=== PATIENT | female | born 1975 | race Asian ===

== ENCOUNTER 2019-01-09 23:04 | Inpatient (IN) | payer MEDICAID ==
[~2019-01-09] VITALS: Ht 172.7 cm; Wt 64.9 kg
[~2019-01-09 23:04] MED LIST: ASEN10TA8 SL; MIRT15 PO
[2019-01-10 00:01] VITALS: BP 122/82
[2019-01-10] MEDS: HALOPERIDOL 5 MG TABLET PO PRN ×2 (01:12→05:43)
[2019-01-10] MEDS: LORazepam 2 MG TABLET PO PRN ×3 (01:12→17:10)
[2019-01-10] MEDS: ZOLPIDEM TARTRATE 10 MG TABLET PO PRN (02:16)
[2019-01-10] MEDS ORDERED: ALBUTEROL SULFATE HFA 90 MCG/PUFF 8 GM INHALER IH PRN (07:45)
[2019-01-10] MEDS ORDERED: BACITRACIN 28.4 GM OINTMENT TP PRN (07:45)
[2019-01-10] MEDS ORDERED: IBUPROFEN 600 MG TABLET PO PRN (07:45)
[2019-01-10] MEDS ORDERED: ONDANSETRON HCL 4 MG TABLET PO PRN (07:45)
[2019-01-10] MEDS ORDERED: LOPERAMIDE HCL 2 MG CAPSULE PO PRN (07:45)
[2019-01-10] MEDS ORDERED: ACETAMINOPHEN 325 MG TABLET PO PRN (07:45)
[2019-01-10] MEDS ORDERED: MAG HYDROX/AL HYDROX/SIMETH ES 30 ML SUSPENSION UDCUP PO PRN (07:45)
[2019-01-10] MEDS ORDERED: BENZOCAINE/MENTHOL LOZENGE MM PRN (07:45)
[2019-01-10] MEDS ORDERED: CloNIDine HCL 0.1 MG TABLET PO PRN (07:45)
[2019-01-10] MEDS ORDERED: PETROLATUM,WHITE 28 GM JELLY TP PRN (07:45)
[2019-01-10] MEDS ORDERED: MAGNESIUM HYDROXIDE SUSPENSION 30 ML UDCUP PO PRN (07:45)
[2019-01-10 07:47] LABS: BASOPHILS % (AUTO) 0.4 % (0.0-2.0); HEMATOCRIT 43.3 % (36-46); HEMOGLOBIN 14.4 g/dL (12.0-16.0); LYMPHOCYTES # (AUTO) 1.3 K/uL (1.0-4.8); LYMPHOCYTES % (AUTO) 37.2 % (22.0-44.0); MEAN CORPUSCULAR HEMOGLOBIN 29.7 pg (26.0-34.0); MEAN CORPUSCULAR HGB CONC 33.3 G/dL (31.0-37.0); MEAN CORPUSCULAR VOLUME 89 fL (80-100); MONOCYTES # (AUTO) 0.5 K/uL (0.1-1.0); NEUTROPHILS # (AUTO) 1.7 K/uL (1.8-7.7); NEUTROPHILS % (AUTO) 47.4 % (40.0-70.0); PLATELET COUNT (AUTO) 289 K/uL (150-450); RED BLOOD CELL COUNT(AUTO) 4.86 MIL/uL (4.00-5.20); RED CELL DISTRIBUTION WIDTH 13.3 % (11.5-14.5)
[2019-01-10 08:04] LABS: HEMOGLOBIN A1C 5.5 % (4.5-6.2)
[2019-01-10 08:19] LABS: ALANINE AMINOTRANSFERASE 15 U/L (12-78); ALBUMIN 3.6 g/dL (3.4-5.0); ALKALINE PHOSPHATASE 78 U/L (46-116); ANION GAP 7 mmol/L (8-16); ASPARTATE AMINOTRANSFERASE 17 U/L (15-37); BILIRUBIN,TOTAL 0.4 mg/dL (0.1-1.0); CALCIUM, TOTAL 9.7 mg/dL (8.8-10.5); CARBON DIOXIDE 27 mmol/L (22-29); CHLORIDE 104 mmol/L (98-107); CHOL/HDL RATIO 4.7 (3.9-5.7); CHOLESTEROL 140 mg/dL (131-200); CREATININE 0.72 mg/dL (0.60-1.30); FREE T4 (FREE THYROXINE) 1.32 ng/dL (0.76-1.46); GLOMERULAR FILTR. RATE CALC > 60 mL/min (>60); GLUCOSE,RANDOM 88 mg/dL (70-110); HCG,QUANTITATIVE < 1 mIU/mL (0-6); HDL CHOLESTEROL 30 mg/dL (40-60); LDL CHOL (CALC.) 99 mg/dL (0-130); POTASSIUM 3.8 mmol/L (3.5-5.1); SODIUM SERUM 138 mmol/L (136-145); THYROID STIMULATING HORMONE 2.67 uIU/mL (0.36-3.74); TOTAL PROTEIN, SERUM 8.1 g/dL (6.4-8.2); TRIGLYCERIDES 56 mg/dL (15-150); UREA NITROGEN, BLOOD 14 mg/dL (7-18)
[2019-01-10 08:30] VITALS: BP 120/76
[2019-01-10] MEDS: OMEPRAZOLE 20 MG CAPSULE PO SCH ×2 (09:00→10:23)
[2019-01-10] MEDS: DOCUSATE SODIUM 100 MG CAPSULE PO SCH ×2 (09:00→10:25)
[2019-01-10 16:07] VITALS: BP 106/68
[2019-01-10] MEDS: MIRTAZAPINE 15 MG TABLET PO SCH (20:23)
[2019-01-10] MEDS: ASENAPINE 10 MG SUBLINGUAL TABLET SL SCH (20:24)
[2019-01-11 06:44] VITALS: BP 120/74
[2019-01-11 08:11] VITALS: BP 101/61
[2019-01-11] MEDS: ASENAPINE 10 MG SUBLINGUAL TABLET SL SCH ×2 (09:41→20:16)
[2019-01-11] MEDS: OMEPRAZOLE 20 MG CAPSULE PO SCH (09:41)
[2019-01-11] MEDS: DOCUSATE SODIUM 100 MG CAPSULE PO SCH (09:41)
[2019-01-11 16:24] VITALS: BP 90/52
[2019-01-11] MEDS: MIRTAZAPINE 15 MG TABLET PO SCH (20:16)
[2019-01-11] MEDS: ZOLPIDEM TARTRATE 10 MG TABLET PO PRN (20:16)
[2019-01-12 06:36] VITALS: BP 102/71
[2019-01-12 08:25] VITALS: BP 102/57
[2019-01-12] MEDS: OMEPRAZOLE 20 MG CAPSULE PO SCH (08:47)
[2019-01-12] MEDS: DOCUSATE SODIUM 100 MG CAPSULE PO SCH (08:48)
[2019-01-12] MEDS: ASENAPINE 10 MG SUBLINGUAL TABLET SL SCH ×2 (08:48→20:11)
[2019-01-12 17:38] VITALS: BP 107/79
[2019-01-12] MEDS: LORazepam 2 MG TABLET PO PRN (17:40)
[2019-01-12] MEDS: MIRTAZAPINE 15 MG TABLET PO SCH (20:11)
[2019-01-12] MEDS: ZOLPIDEM TARTRATE 10 MG TABLET PO PRN (20:11)
[2019-01-12] MEDS: HALOPERIDOL 5 MG TABLET PO PRN (20:11)
[2019-01-13 00:52] VITALS: BP 105/70
[2019-01-13 08:15] VITALS: BP 103/62
[2019-01-13] MEDS: ASENAPINE 10 MG SUBLINGUAL TABLET SL SCH ×2 (08:33→20:17)
[2019-01-13] MEDS: OMEPRAZOLE 20 MG CAPSULE PO SCH (08:33)
[2019-01-13] MEDS: DOCUSATE SODIUM 100 MG CAPSULE PO SCH (08:33)
[2019-01-13 16:14] VITALS: BP 96/62
[2019-01-13] MEDS: LORazepam 2 MG TABLET PO PRN (17:07)
[2019-01-13] MEDS: HALOPERIDOL 5 MG TABLET PO PRN (17:07)
[2019-01-13] MEDS: MIRTAZAPINE 15 MG TABLET PO SCH (20:17)
[2019-01-14 06:28] VITALS: BP 104/70
[2019-01-14 08:15] VITALS: BP 108/66
[2019-01-14] MEDS: OMEPRAZOLE 20 MG CAPSULE PO SCH (08:19)
[2019-01-14] MEDS: ASENAPINE 10 MG SUBLINGUAL TABLET SL SCH (08:19)
[2019-01-14] MEDS: DOCUSATE SODIUM 100 MG CAPSULE PO SCH (08:19)
[2019-01-14] MEDS ORDERED: ASEN5TAB6 SL (09:49)
== END 2019-01-14 13:15 | disposition home or self-care (01) | DRG 750 ==
LOC: B3A 23:35
DX: F25.1 Schizoaffective disorder, depressive type (principal); R45.851 Suicidal ideations; F17.210 Nicotine dependence, cigarettes, uncomplicated; F41.9 Anxiety disorder, unspecified; G47.00 Insomnia, unspecified; K59.00 Constipation, unspecified; K21.9 Gastro-esophageal reflux disease without esophagitis; Z79.899 Other long term (current) drug therapy
CPT/HCPCS: 83036; 84439; 84443

== ENCOUNTER 2019-07-20 05:46 | Inpatient (IN) | payer MEDICAID, OTHER ==
[~2019-07-20] VITALS: Ht 170.2 cm; Wt 64.4 kg
[~2019-07-20 05:46] MED LIST changes: -ASEN10TA8 SL; +ASEN5TAB6 SL; +MIRT-92 PO; -MIRT15 PO
[2019-07-20] MEDS ORDERED: OLAN5TAB2 PO (06:16)
[2019-07-20 06:58] LABS: AMPHET/METH SCREEN,URINE POSITIVE (NEGATIVE); BARBITURATE SCREEN, URINE NEGATIVE (NEGATIVE); BENZODIAZEPINES SCREEN,URINE NEGATIVE (NEGATIVE); CANNABINOID SCREEN,URINE NEGATIVE (NEGATIVE); COCAINE SCREEN,URINE NEGATIVE (NEGATIVE); METHADONE SCREEN, URINE NEGATIVE (NEGATIVE); OPIATE SCREEN,URINE NEGATIVE (NEGATIVE)
[2019-07-20 06:59] LABS: PHENCYCLIDINE SCREEN,URINE NEGATIVE (NEGATIVE)
[2019-07-20 07:44] LABS: BASOPHILS % (AUTO) 0.5 % (0.0-2.0); EOSINOPHILS % (AUTO) 0.4 % (1.0-6.0); HEMATOCRIT 41.3 % (36-46); HEMOGLOBIN 14.2 g/dL (12.0-16.0); LYMPHOCYTES # (AUTO) 1.3 K/uL (1.0-4.8); LYMPHOCYTES % (AUTO) 30.6 % (22.0-44.0); MEAN CORPUSCULAR HEMOGLOBIN 29.6 pg (26.0-34.0); MEAN CORPUSCULAR HGB CONC 34.3 G/dL (31.0-37.0); MEAN CORPUSCULAR VOLUME 86 fL (80-100); MONOCYTES # (AUTO) 0.6 K/uL (0.1-1.0); MONOCYTES % (AUTO) 13.4 % (2.0-9.0); NEUTROPHILS # (AUTO) 2.4 K/uL (1.8-7.7); NEUTROPHILS % (AUTO) 55.1 % (40.0-70.0); PLATELET COUNT (AUTO) 285 K/uL (150-450); RED BLOOD CELL COUNT(AUTO) 4.79 MIL/uL (4.00-5.20); RED CELL DISTRIBUTION WIDTH 12.8 % (11.5-14.5)
[2019-07-20 07:56] LABS: ANION GAP 6 mmol/L (8-16); CALCIUM, TOTAL 8.5 mg/dL (8.8-10.5); CARBON DIOXIDE 27 mmol/L (22-29); CHLORIDE 105 mmol/L (98-107); CREATININE 0.74 mg/dL (0.60-1.30); GLOMERULAR FILTR. RATE CALC > 60 mL/min (>60); GLUCOSE,RANDOM 119 mg/dL (70-110); POTASSIUM 3.7 mmol/L (3.5-5.1); SODIUM SERUM 138 mmol/L (136-145); UREA NITROGEN, BLOOD 17 mg/dL (7-18)
[2019-07-20 08:10] LABS: ALANINE AMINOTRANSFERASE 21 U/L (12-78); ALBUMIN 3.4 g/dL (3.4-5.0); ALKALINE PHOSPHATASE 73 U/L (46-116); ASPARTATE AMINOTRANSFERASE 18 U/L (15-37); BILIRUBIN,TOTAL 0.3 mg/dL (0.1-1.0); HCG,QUANTITATIVE < 1 mIU/mL (0-6); TOTAL PROTEIN, SERUM 7.5 g/dL (6.4-8.2)
[2019-07-20] MEDS ORDERED: DiphenhydrAMINE HCL 50 MG/ML VIAL IM ONE (09:30)
[2019-07-20] MEDS ORDERED: LORazepam 2 MG/ML VIAL IM ONE (09:30)
[2019-07-20] MEDS ORDERED: HALOPERIDOL LACTATE 5 MG/ML VIAL IM ONE (09:30)
[2019-07-20] MEDS ORDERED: HALOPERIDOL 5 MG TABLET PO PRN (10:30)
[2019-07-20] MEDS ORDERED: ZOLPIDEM TARTRATE 10 MG TABLET PO PRN (10:30)
[2019-07-20 13:22] VITALS: BP 94/61
[2019-07-20 16:06] VITALS: BP 100/60
[2019-07-20] MEDS ORDERED: MAG HYDROX/AL HYDROX/SIMETH ES 30 ML SUSPENSION UDCUP PO PRN (17:00)
[2019-07-20] MEDS ORDERED: MAGNESIUM HYDROXIDE SUSPENSION 30 ML UDCUP PO PRN (17:00)
[2019-07-20] MEDS ORDERED: LOPERAMIDE HCL 2 MG CAPSULE PO PRN (17:00)
[2019-07-20] MEDS ORDERED: ALBUTEROL SULFATE HFA 90 MCG/PUFF 8 GM INHALER IH PRN (17:00)
[2019-07-20] MEDS ORDERED: DOCUSATE SODIUM 100 MG CAPSULE PO PRN (17:00)
[2019-07-20] MEDS ORDERED: CloNIDine HCL 0.1 MG TABLET PO PRN (17:00)
[2019-07-20] MEDS ORDERED: ACETAMINOPHEN 325 MG TABLET PO PRN (17:00)
[2019-07-20] MEDS ORDERED: ONDANSETRON HCL 4 MG TABLET PO PRN (17:00)
[2019-07-20] MEDS ORDERED: NICOTINE 14 MG/24 HOUR PATCH TD PRN (17:00)
[2019-07-20] MEDS ORDERED: GuaiFENesin/D-METHORPHAN [SUGAR-FREE] 200-20MG/10 ML SYRUP UDCUP PO PRN (17:00)
[2019-07-20] MEDS ORDERED: PETROLATUM,WHITE 28 GM JELLY TP PRN (17:00)
[2019-07-21 00:13] VITALS: BP 95/62
[2019-07-21] MEDS ORDERED: INFLUENZA VIRUS VACCINE QVS 2019-20 (3YR+)/PF 60 MCG/0.5 ML SYRINGE IM ONE (01:15)
[2019-07-21 08:07] VITALS: BP 100/54
[2019-07-21 16:03] VITALS: BP 101/68
[2019-07-21 17:32] VITALS: BP 149/69
[2019-07-21] MEDS: IBUPROFEN 400 MG TABLET PO PRN (17:32)
[2019-07-21] MEDS: MIRTAZAPINE 15 MG TABLET PO SCH (21:06)
[2019-07-21] MEDS: OLANZapine 5 MG TABLET PO SCH (21:07)
[2019-07-22 04:52] VITALS: BP 135/68
[2019-07-22 08:17] VITALS: BP 100/59
[2019-07-22] MEDS: OLANZapine 5 MG TABLET PO SCH ×2 (09:21→20:21)
[2019-07-22 16:02] VITALS: BP 118/72
[2019-07-22] MEDS: LORazepam 2 MG TABLET PO PRN (17:25)
[2019-07-22] MEDS: MIRTAZAPINE 15 MG TABLET PO SCH (20:21)
[2019-07-23 04:54] VITALS: BP 101/62
[2019-07-23] MEDS: OLANZapine 5 MG TABLET PO SCH ×2 (08:11→20:23)
[2019-07-23 08:51] VITALS: BP 120/77
[2019-07-23] MEDS: IBUPROFEN 400 MG TABLET PO PRN (08:51)
[2019-07-23] MEDS: LORazepam 2 MG TABLET PO PRN (08:51)
[2019-07-23 19:26] VITALS: BP 102/75
[2019-07-23] MEDS: MIRTAZAPINE 15 MG TABLET PO SCH (20:24)
[2019-07-24 02:54] VITALS: BP 100/68
[2019-07-24] MEDS: OLANZapine 5 MG TABLET PO SCH ×2 (08:56→20:40)
[2019-07-24 16:00] VITALS: BP 107/68
[2019-07-24] MEDS: LORazepam 2 MG TABLET PO PRN (17:35)
[2019-07-24] MEDS: MIRTAZAPINE 15 MG TABLET PO SCH (20:40)
[2019-07-25 01:22] VITALS: BP 122/83
[2019-07-25] MEDS: OLANZapine 5 MG TABLET PO SCH ×2 (08:30→20:54)
[2019-07-25] MEDS: MIRTAZAPINE 15 MG TABLET PO SCH (20:54)
[2019-07-26 04:46] VITALS: BP 102/67
[2019-07-26] MEDS: OLANZapine 5 MG TABLET PO SCH ×2 (08:06→20:29)
[2019-07-26 08:16] VITALS: BP 109/64
[2019-07-26 16:03] VITALS: BP 100/66
[2019-07-26] MEDS: LORazepam 2 MG TABLET PO PRN (16:50)
[2019-07-26] MEDS: MIRTAZAPINE 15 MG TABLET PO SCH (20:29)
[2019-07-27 05:21] VITALS: BP 101/62
[2019-07-27 08:09] VITALS: BP 106/62
[2019-07-27] MEDS: IBUPROFEN 400 MG TABLET PO PRN (08:46)
[2019-07-27] MEDS: OLANZapine 5 MG TABLET PO SCH ×2 (08:47→20:32)
[2019-07-27 16:51] VITALS: BP 98/60
[2019-07-27] MEDS: MIRTAZAPINE 15 MG TABLET PO SCH (20:32)
[2019-07-28 06:34] VITALS: BP 106/68
[2019-07-28 08:19] VITALS: BP 101/60
[2019-07-28] MEDS: OLANZapine 5 MG TABLET PO SCH ×2 (08:30→20:26)
[2019-07-28 17:19] VITALS: BP 88/60
[2019-07-28 18:03] VITALS: BP 113/62
[2019-07-28] MEDS: IBUPROFEN 400 MG TABLET PO PRN (18:16)
[2019-07-28] MEDS: MIRTAZAPINE 15 MG TABLET PO SCH (20:26)
[2019-07-29 05:22] VITALS: BP 118/62
[2019-07-29] MEDS: OLANZapine 5 MG TABLET PO SCH (08:23)
[2019-07-29] MEDS ORDERED: OLAN5TAB27 PO (10:03)
[2019-07-29] MEDS ORDERED: MIRT15TA6 PO (10:03)
== END 2019-07-29 12:20 | disposition home or self-care (01) | DRG 750 ==
LOC: EMS 05:46 → B3A 12:48
DX: F25.0 Schizoaffective disorder, bipolar type (principal); R45.851 Suicidal ideations; F15.10 Other stimulant abuse, uncomplicated; D72.819 Decreased white blood cell count, unspecified; F10.10 Alcohol abuse, uncomplicated; F41.9 Anxiety disorder, unspecified; G47.00 Insomnia, unspecified; F17.210 Nicotine dependence, cigarettes, uncomplicated; Z87.59 Personal history of other complications of pregnancy, childbirth and the puerperium; Z98.82 Breast implant status
CPT/HCPCS: G0480; J1200; J1630; J2060

== ENCOUNTER 2019-10-09 23:17 | Inpatient (IN) | payer MEDICAID ==
[~2019-10-09] VITALS: Ht 172.7 cm; Wt 67.1 kg
[~2019-10-09 23:17] MED LIST changes: -ASEN5TAB6 SL; +MIRT-89 PO; -MIRT-92 PO; +MIRT15TA6 PO; +OLAN5TAB27 PO
[2019-10-10 01:30] VITALS: BP 110/85
[2019-10-10] MEDS ORDERED: ZOLPIDEM TARTRATE 10 MG TABLET PO PRN (01:30)
[2019-10-10] MEDS: LORazepam 2 MG TABLET PO PRN ×2 (03:22→16:47)
[2019-10-10] MEDS: HALOPERIDOL 5 MG TABLET PO PRN ×2 (04:30→16:47)
[2019-10-10] MEDS ORDERED: LOPERAMIDE HCL 2 MG CAPSULE PO PRN (07:45)
[2019-10-10] MEDS ORDERED: ACETAMINOPHEN 325 MG TABLET PO PRN (07:45)
[2019-10-10] MEDS ORDERED: GuaiFENesin/D-METHORPHAN [SUGAR-FREE] 200-20MG/10 ML SYRUP UDCUP PO PRN (07:45)
[2019-10-10] MEDS ORDERED: NICOTINE 14 MG/24 HOUR PATCH TD PRN (07:45)
[2019-10-10] MEDS ORDERED: IBUPROFEN 400 MG TABLET PO PRN (07:45)
[2019-10-10] MEDS ORDERED: MAGNESIUM HYDROXIDE SUSPENSION 30 ML UDCUP PO PRN (07:45)
[2019-10-10] MEDS ORDERED: CloNIDine HCL 0.1 MG TABLET PO PRN (07:45)
[2019-10-10] MEDS ORDERED: PETROLATUM,WHITE 28 GM JELLY TP PRN (07:45)
[2019-10-10] MEDS ORDERED: ONDANSETRON HCL 4 MG TABLET PO PRN (07:45)
[2019-10-10] MEDS ORDERED: MAG HYDROX/AL HYDROX/SIMETH ES 30 ML SUSPENSION UDCUP PO PRN (07:45)
[2019-10-10] MEDS ORDERED: DOCUSATE SODIUM 100 MG CAPSULE PO PRN (07:45)
[2019-10-10] MEDS ORDERED: ALBUTEROL SULFATE HFA 90 MCG/PUFF 8 GM INHALER IH PRN (07:45)
[2019-10-10] MEDS: OLANZapine 5 MG TABLET PO SCH ×2 (10:25→20:47)
[2019-10-10 14:11] VITALS: BP 98/60
[2019-10-10 16:29] VITALS: BP 106/65
[2019-10-10] MEDS: MIRTAZAPINE 15 MG TABLET PO SCH (20:47)
[2019-10-11 06:25] VITALS: BP 104/62
[2019-10-11 07:51] LABS: BASOPHILS % (AUTO) 0.6 % (0.0-2.0); EOSINOPHILS % (AUTO) 2.3 % (1.0-6.0); HEMATOCRIT 39.9 % (36-46); HEMOGLOBIN 13.4 g/dL (12.0-16.0); LYMPHOCYTES # (AUTO) 1.4 K/uL (1.0-4.8); LYMPHOCYTES % (AUTO) 36.2 % (22.0-44.0); MEAN CORPUSCULAR HEMOGLOBIN 29.2 pg (26.0-34.0); MEAN CORPUSCULAR HGB CONC 33.5 G/dL (31.0-37.0); MEAN CORPUSCULAR VOLUME 87 fL (80-100); MONOCYTES # (AUTO) 0.7 K/uL (0.1-1.0); MONOCYTES % (AUTO) 17.9 % (2.0-9.0); NEUTROPHILS # (AUTO) 1.7 K/uL (1.8-7.7); PLATELET COUNT (AUTO) 294 K/uL (150-450); RED BLOOD CELL COUNT(AUTO) 4.58 MIL/uL (4.00-5.20); RED CELL DISTRIBUTION WIDTH 13.9 % (11.5-14.5)
[2019-10-11 08:30] VITALS: BP 114/72
[2019-10-11 08:33] LABS: ALANINE AMINOTRANSFERASE 17 U/L (12-78); ALKALINE PHOSPHATASE 70 U/L (46-116); ANION GAP 6 mmol/L (8-16); ASPARTATE AMINOTRANSFERASE 12 U/L (15-37); BILIRUBIN,TOTAL 0.3 mg/dL (0.1-1.0); CALCIUM, TOTAL 8.4 mg/dL (8.8-10.5); CARBON DIOXIDE 28 mmol/L (22-29); CHLORIDE 107 mmol/L (98-107); CHOL/HDL RATIO 2.3 (3.9-5.7); CHOLESTEROL 104 mg/dL (131-200); FREE T4 (FREE THYROXINE) 1.09 ng/dL (0.76-1.46); GLOMERULAR FILTR. RATE CALC > 60 mL/min (>60); GLUCOSE,RANDOM 92 mg/dL (70-110); HCG,QUANTITATIVE 1 mIU/mL (0-6); HDL CHOLESTEROL 45 mg/dL (40-60); LDL CHOL (CALC.) 50 mg/dL (0-130); SODIUM SERUM 141 mmol/L (136-145); THYROID STIMULATING HORMONE 1.79 uIU/mL (0.36-3.74); TOTAL PROTEIN, SERUM 6.9 g/dL (6.4-8.2); TRIGLYCERIDES 43 mg/dL (15-150); UREA NITROGEN, BLOOD 16 mg/dL (7-18)
[2019-10-11] MEDS: OLANZapine 5 MG TABLET PO SCH ×3 (09:00→21:01)
[2019-10-11] MEDS: LORazepam 2 MG TABLET PO PRN (09:40)
[2019-10-11 20:12] VITALS: BP 96/65
[2019-10-11] MEDS: MIRTAZAPINE 15 MG TABLET PO SCH (21:00)
[2019-10-12 04:45] VITALS: BP 102/68
[2019-10-12 08:28] VITALS: BP 98/61
[2019-10-12] MEDS: OLANZapine 5 MG TABLET PO SCH ×2 (10:12→20:59)
[2019-10-12 16:34] VITALS: BP 108/62
[2019-10-12] MEDS: MIRTAZAPINE 15 MG TABLET PO SCH (20:59)
[2019-10-13 05:09] VITALS: BP 103/69
[2019-10-13 08:00] VITALS: BP 110/72
[2019-10-13] MEDS: OLANZapine 5 MG TABLET PO SCH ×2 (09:13→20:49)
[2019-10-13] MEDS: LORazepam 2 MG TABLET PO PRN (09:55)
[2019-10-13] MEDS: MIRTAZAPINE 15 MG TABLET PO SCH (20:49)
[2019-10-14 02:48] VITALS: BP 100/73
[2019-10-14 08:09] VITALS: BP 112/63
[2019-10-14] MEDS: OLANZapine 5 MG TABLET PO SCH (09:00)
[2019-10-14] MEDS ORDERED: OLAN5TAB27 PO (09:30)
[2019-10-14] MEDS ORDERED: MIRT-89 PO (09:30)
== END 2019-10-14 12:00 | disposition home or self-care (01) | DRG 750 ==
LOC: B3A 10-10 01:00
DX: F25.0 Schizoaffective disorder, bipolar type (principal); R45.851 Suicidal ideations; Z59.0 Homelessness; Z91.5 Personal history of self-harm; F15.10 Other stimulant abuse, uncomplicated; F12.10 Cannabis abuse, uncomplicated; F32.9 Major depressive disorder, single episode, unspecified; F41.9 Anxiety disorder, unspecified; F19.10 Other psychoactive substance abuse, uncomplicated; D64.9 Anemia, unspecified; F10.10 Alcohol abuse, uncomplicated; Y90.9 Presence of alcohol in blood, level not specified; Z88.8 Allergy status to other drugs, medicaments and biological substances; Z91.14 Patient's other noncompliance with medication regimen; Z79.899 Other long term (current) drug therapy
CPT/HCPCS: 84439; 84443

== ENCOUNTER 2020-02-28 13:26 | Emergency (ER) | payer MEDICAID, OTHER ==
[~2020-02-28] VITALS: Ht 172.7 cm; Wt 63.6 kg
[~2020-02-28 13:26] MED LIST changes: -MIRT15TA6 PO
[2020-02-28 16:05] LABS: APPEARANCE,URINE CLOUDY (CLEAR); BILIRUBIN,URINE NEGATIVE (NEGATIVE); GLUCOSE, URINE (UA) NEGATIVE (NEGATIVE); KETONES,URINE NEGATIVE (NEGATIVE); LEUKOCYTE ESTERASE ,URINE LARGE (NEGATIVE); NITRATE,URINE NEGATIVE (NEGATIVE); OCCULT BLOOD,URINE MODERATE (NEGATIVE); PROTEIN,URINE TRACE (NEGATIVE)
[2020-02-28 16:21] LABS: BACTERIA,URINE Moderate /HPF (None Seen); RBC,URINE 0-2 /HPF (0-2); SQUAMOUS EPITHELIAL CELL,UR Moderate /LPF (None Seen)
[2020-02-28] MEDS ORDERED: PHENAZOPYRIDINE HCL 100 MG TABLET PO ONE (16:45)
[2020-02-28] MEDS ORDERED: NITROFURANTOIN/NITROFURAN MAC 100 MG CAPSULE [MACROBID] PO ONE (16:45)
[2020-02-28 16:56] VITALS: BP 116/75
== END 2020-02-28 17:31 | disposition home or self-care (01) ==
LOC: EMS 13:30
DX: N89.8 Other specified noninflammatory disorders of vagina (principal); N39.0 Urinary tract infection, site not specified; F17.210 Nicotine dependence, cigarettes, uncomplicated; F32.9 Major depressive disorder, single episode, unspecified; F20.9 Schizophrenia, unspecified; F12.90 Cannabis use, unspecified, uncomplicated; F19.90 Other psychoactive substance use, unspecified, uncomplicated; Z88.8 Allergy status to other drugs, medicaments and biological substances
CPT/HCPCS: 87086; 99406

== ENCOUNTER 2020-04-03 14:06 | Emergency (ER) | payer OTHER ==
[~2020-04-03] VITALS: Ht 175.3 cm; Wt 72.7 kg
[2020-04-03 14:09] VITALS: BP 110/78
[2020-04-03] MEDS ORDERED: MELA3TAB82 PO (14:12)
[2020-04-03] MEDS ORDERED: CLON-592 PO (14:12)
== END 2020-04-03 17:24 | disposition home or self-care (01) ==
LOC: EMS 14:17
DX: H65.01 Acute serous otitis media, right ear (principal); F25.9 Schizoaffective disorder, unspecified; F31.9 Bipolar disorder, unspecified; F17.210 Nicotine dependence, cigarettes, uncomplicated; F12.90 Cannabis use, unspecified, uncomplicated; F19.90 Other psychoactive substance use, unspecified, uncomplicated; Z88.8 Allergy status to other drugs, medicaments and biological substances
CPT/HCPCS: 99406

== ENCOUNTER 2020-04-28 16:24 | Emergency (ER) | payer OTHER ==
[~2020-04-28] VITALS: Ht 172.7 cm; Wt 63.6 kg
[~2020-04-28 16:24] MED LIST changes: +CLON-592 PO; +MELA3TAB82 PO; -MIRT-89 PO; -OLAN5TAB27 PO
[2020-04-28 18:42] VITALS: BP 126/79
[2020-04-28] MEDS ORDERED: CEPHALEXIN MONOHYDRATE 500 MG CAPSULE PO ONE (19:15)
[2020-04-28] MEDS ORDERED: FLUCONAZOLE 150 MG TABLET PO ONE (19:15)
== END 2020-04-28 19:52 | disposition home or self-care (01) ==
LOC: EMS 16:24
DX: N81.10 Cystocele, unspecified (principal); N39.0 Urinary tract infection, site not specified; B37.9 Candidiasis, unspecified; G47.30 Sleep apnea, unspecified; F17.210 Nicotine dependence, cigarettes, uncomplicated; F12.90 Cannabis use, unspecified, uncomplicated; F15.90 Other stimulant use, unspecified, uncomplicated; Z88.8 Allergy status to other drugs, medicaments and biological substances

== ENCOUNTER 2020-05-01 16:49 | Emergency (ER) | payer OTHER ==
[~2020-05-01] VITALS: Ht 172.7 cm; Wt 63.6 kg
[2020-05-01 16:52] VITALS: BP 114/61
== END 2020-05-02 07:00 | disposition left against medical advice (07) ==
LOC: EMS 16:49
DX: R10.2 Pelvic and perineal pain (principal); Z53.21 Procedure and treatment not carried out due to patient leaving prior to being seen by health care provider

== ENCOUNTER 2020-05-03 15:38 | Emergency (ER) | payer OTHER ==
[~2020-05-03] VITALS: Ht 177.8 cm; Wt 70.5 kg
[2020-05-03 15:42] VITALS: BP 109/65
== END 2020-05-03 16:17 | disposition home or self-care (01) ==
LOC: EMS 15:38
DX: Z76.0 Encounter for issue of repeat prescription (principal); G47.00 Insomnia, unspecified; F17.210 Nicotine dependence, cigarettes, uncomplicated; F12.90 Cannabis use, unspecified, uncomplicated; F15.90 Other stimulant use, unspecified, uncomplicated
CPT/HCPCS: Z7502

== ENCOUNTER 2020-05-07 07:45 | Inpatient (IN) | payer MEDICAID, OTHER ==
[~2020-05-07] VITALS: Ht 172.7 cm; Wt 54.4 kg
[2020-05-07] MEDS ORDERED: OLAN2.5T3 PO (08:02)
[2020-05-07] MEDS ORDERED: MELA1TAB25 PO (08:02)
[2020-05-07] MEDS ORDERED: CLON-592 PO (08:02)
[2020-05-07 08:24] LABS: COVID AG,FIA SOURCE NASOPHARYNGEAL
[2020-05-07 08:38] LABS: BASOPHILS % (AUTO) 0.6 % (0.0-2.0); HEMATOCRIT 41.9 % (36-46); HEMOGLOBIN 14.1 g/dL (12.0-16.0); LYMPHOCYTES # (AUTO) 1.7 K/uL (1.0-4.8); LYMPHOCYTES % (AUTO) 36.2 % (22.0-44.0); MEAN CORPUSCULAR HEMOGLOBIN 28.9 pg (26.0-34.0); MEAN CORPUSCULAR HGB CONC 33.6 G/dL (31.0-37.0); MEAN CORPUSCULAR VOLUME 86 fL (80-100); MONOCYTES # (AUTO) 0.6 K/uL (0.1-1.0); MONOCYTES % (AUTO) 13.2 % (2.0-9.0); NEUTROPHILS # (AUTO) 2.3 K/uL (1.8-7.7); PLATELET COUNT (AUTO) 398 K/uL (150-450); RED BLOOD CELL COUNT(AUTO) 4.88 MIL/uL (4.00-5.20); RED CELL DISTRIBUTION WIDTH 14.2 % (11.5-14.5)
[2020-05-07 08:52] LABS: ANION GAP 5 mmol/L (8-16); CALCIUM, TOTAL 8.7 mg/dL (8.8-10.5); CARBON DIOXIDE 27 mmol/L (22-29); CHLORIDE 105 mmol/L (98-107); CREATININE 0.74 mg/dL (0.60-1.30); GLOMERULAR FILTR. RATE CALC > 60 mL/min (>60); GLUCOSE,RANDOM 101 mg/dL (70-110); POTASSIUM 3.8 mmol/L (3.5-5.1); SODIUM SERUM 137 mmol/L (136-145); UREA NITROGEN, BLOOD 7 mg/dL (7-18)
[2020-05-07 08:57] LABS: ALANINE AMINOTRANSFERASE 13 U/L (12-78); ALBUMIN 2.7 g/dL (3.4-5.0); ALKALINE PHOSPHATASE 80 U/L (46-116); ASPARTATE AMINOTRANSFERASE 11 U/L (15-37); BILIRUBIN,TOTAL 0.3 mg/dL (0.1-1.0); TOTAL PROTEIN, SERUM 8.2 g/dL (6.4-8.2)
[2020-05-07] MEDS ORDERED: HydrOXYzine PAMOATE 25 MG CAPSULE PO ONE (09:45)
[2020-05-07 10:10] LABS: APPEARANCE,URINE CLOUDY (CLEAR); BILIRUBIN,URINE NEGATIVE (NEGATIVE); GLUCOSE, URINE (UA) NEGATIVE (NEGATIVE); KETONES,URINE NEGATIVE (NEGATIVE); LEUKOCYTE ESTERASE ,URINE LARGE (NEGATIVE); NITRATE,URINE NEGATIVE (NEGATIVE); OCCULT BLOOD,URINE MODERATE (NEGATIVE); PROTEIN,URINE SEE CONFIRM (NEGATIVE); UROBILINOGEN,URINE 0.2 mg/dL (<=1.0)
[2020-05-07 10:26] LABS: SULFOSALICYLIC ACID,URINE 3+ (Negative)
[2020-05-07 10:27] LABS: BACTERIA,URINE Moderate /HPF (None Seen); SQUAMOUS EPITHELIAL CELL,UR Moderate /LPF (None Seen); WBC,URINE 26-50 /HPF (0-5)
[2020-05-07] MEDS ORDERED: DiphenhydrAMINE HCL 50 MG/ML VIAL IM ONE (10:45)
[2020-05-07] MEDS ORDERED: HALOPERIDOL LACTATE 5 MG/ML VIAL IM ONE (10:45)
[2020-05-07] MEDS ORDERED: CEPHALEXIN MONOHYDRATE 500 MG CAPSULE PO ONE (10:45)
[2020-05-07] MEDS ORDERED: LORazepam 2 MG/ML VIAL IM ONE (10:45)
[2020-05-07 10:55] LABS: AMPHET/METH SCREEN,URINE POSITIVE (NEGATIVE); BARBITURATE SCREEN, URINE NEGATIVE (NEGATIVE); BENZODIAZEPINES SCREEN,URINE NEGATIVE (NEGATIVE); CANNABINOID SCREEN,URINE NEGATIVE (NEGATIVE); COCAINE SCREEN,URINE NEGATIVE (NEGATIVE); METHADONE SCREEN, URINE NEGATIVE (NEGATIVE); OPIATE SCREEN,URINE NEGATIVE (NEGATIVE); PHENCYCLIDINE SCREEN,URINE NEGATIVE (NEGATIVE)
[2020-05-07] MEDS ORDERED: ZOLPIDEM TARTRATE 10 MG TABLET PO PRN (13:30)
[2020-05-07 20:00] VITALS: BP 100/61
[2020-05-07] MEDS: CEPHALEXIN MONOHYDRATE 500 MG CAPSULE PO SCH (22:15)
[2020-05-08] MEDS: LORazepam 2 MG TABLET PO PRN (06:37)
[2020-05-08] MEDS ORDERED: LOPERAMIDE HCL 2 MG CAPSULE PO PRN (07:00)
[2020-05-08] MEDS ORDERED: DOCUSATE SODIUM 100 MG CAPSULE PO PRN (07:00)
[2020-05-08] MEDS ORDERED: ACETAMINOPHEN 325 MG TABLET PO PRN (07:00)
[2020-05-08] MEDS ORDERED: MAGNESIUM HYDROXIDE SUSPENSION 30 ML UDCUP PO PRN (07:00)
[2020-05-08] MEDS ORDERED: CloNIDine HCL 0.1 MG TABLET PO PRN (07:00)
[2020-05-08] MEDS ORDERED: GuaiFENesin/D-METHORPHAN [SUGAR-FREE] 200-20MG/10 ML SYRUP UDCUP PO PRN (07:00)
[2020-05-08] MEDS ORDERED: IBUPROFEN 400 MG TABLET PO PRN (07:00)
[2020-05-08] MEDS ORDERED: ALBUTEROL SULFATE HFA 90 MCG/PUFF 8 GM INHALER IH PRN (07:00)
[2020-05-08] MEDS ORDERED: PETROLATUM,WHITE 28 GM JELLY TP PRN (07:00)
[2020-05-08] MEDS ORDERED: ONDANSETRON HCL 4 MG TABLET PO PRN (07:00)
[2020-05-08] MEDS ORDERED: MAG HYDROX/AL HYDROX/SIMETH ES 30 ML SUSPENSION UDCUP PO PRN (07:00)
[2020-05-08] MEDS ORDERED: NICOTINE 14 MG/24 HOUR PATCH TD PRN (07:00)
[2020-05-08] MEDS: CEPHALEXIN MONOHYDRATE 500 MG CAPSULE PO SCH ×3 (08:48→16:23)
[2020-05-08] MEDS: OLANZapine 7.5 MG TABLET PO SCH ×2 (12:45→20:36)
[2020-05-08 16:00] VITALS: BP 129/60
[2020-05-08] MEDS: MIRTAZAPINE 15 MG TABLET PO SCH (20:36)
[2020-05-09] MEDS: CEPHALEXIN MONOHYDRATE 500 MG CAPSULE PO SCH ×3 (09:15→16:30)
[2020-05-09] MEDS: OLANZapine 7.5 MG TABLET PO SCH ×2 (09:15→20:28)
[2020-05-09 10:32] VITALS: BP 101/67
[2020-05-09 20:26] VITALS: BP_SYST 105; BP_SYST 118; BP_DIAS 55; BP_DIAS 65
[2020-05-09] MEDS: MIRTAZAPINE 15 MG TABLET PO SCH (20:28)
[2020-05-10] MEDS: CEPHALEXIN MONOHYDRATE 500 MG CAPSULE PO SCH ×3 (08:43→16:29)
[2020-05-10] MEDS: OLANZapine 7.5 MG TABLET PO SCH ×2 (08:43→20:21)
[2020-05-10 10:13] VITALS: BP 111/58
[2020-05-10 16:00] VITALS: BP 122/81
[2020-05-10] MEDS: LORazepam 2 MG TABLET PO PRN (17:07)
[2020-05-10] MEDS: MIRTAZAPINE 15 MG TABLET PO SCH (20:21)
[2020-05-11] MEDS: OLANZapine 7.5 MG TABLET PO SCH ×2 (10:38→20:36)
[2020-05-11] MEDS: CEPHALEXIN MONOHYDRATE 500 MG CAPSULE PO SCH ×3 (10:38→16:27)
[2020-05-11 10:48] VITALS: BP 103/79
[2020-05-11 16:26] VITALS: BP 113/60
[2020-05-11] MEDS: MIRTAZAPINE 15 MG TABLET PO SCH (20:36)
[2020-05-12 08:00] VITALS: BP 90/56
[2020-05-12] MEDS: CEPHALEXIN MONOHYDRATE 500 MG CAPSULE PO SCH ×3 (09:44→16:20)
[2020-05-12] MEDS: OLANZapine 7.5 MG TABLET PO SCH ×2 (09:45→20:33)
[2020-05-12] MEDS: HALOPERIDOL 5 MG TABLET PO PRN (13:42)
[2020-05-12] MEDS: LORazepam 2 MG TABLET PO PRN (13:42)
[2020-05-12 16:00] VITALS: BP 141/69
[2020-05-12] MEDS: MIRTAZAPINE 15 MG TABLET PO SCH (20:33)
[2020-05-13] MEDS: OLANZapine 7.5 MG TABLET PO SCH ×2 (09:00→20:48)
[2020-05-13 10:03] VITALS: BP 99/60
[2020-05-13 16:05] VITALS: BP 120/70
[2020-05-13] MEDS: LORazepam 2 MG TABLET PO PRN (16:24)
[2020-05-13] MEDS: HALOPERIDOL 5 MG TABLET PO PRN (17:00)
[2020-05-13] MEDS: MIRTAZAPINE 15 MG TABLET PO SCH (20:48)
[2020-05-14] MEDS: OLANZapine 7.5 MG TABLET PO SCH ×2 (08:46→20:54)
[2020-05-14 09:28] VITALS: BP 112/53
[2020-05-14 16:56] VITALS: BP 107/70
[2020-05-14] MEDS: LORazepam 2 MG TABLET PO PRN (17:42)
[2020-05-14] MEDS: HALOPERIDOL 5 MG TABLET PO PRN (18:34)
[2020-05-14] MEDS: MIRTAZAPINE 15 MG TABLET PO SCH (20:54)
[2020-05-15 08:00] VITALS: BP 100/71
[2020-05-15] MEDS: OLANZapine 7.5 MG TABLET PO SCH (09:08)
[2020-05-15] MEDS ORDERED: MIRT-89 PO (09:23)
[2020-05-15] MEDS ORDERED: OLAN7.5T9 PO (09:23)
== END 2020-05-15 14:15 | disposition home or self-care (01) | DRG 750 ==
LOC: EMS 07:45 → 3EI 13:16
DX: F25.0 Schizoaffective disorder, bipolar type (principal); F15.10 Other stimulant abuse, uncomplicated; F41.9 Anxiety disorder, unspecified; N39.0 Urinary tract infection, site not specified; F17.200 Nicotine dependence, unspecified, uncomplicated; Z20.828 Contact with and (suspected) exposure to other viral communicable diseases; R45.851 Suicidal ideations; Z79.899 Other long term (current) drug therapy; Z98.82 Breast implant status; Z91.5 Personal history of self-harm; Z88.8 Allergy status to other drugs, medicaments and biological substances
CPT/HCPCS: 87086; 87426; G0480; J1200; J1630; J2060

== ENCOUNTER 2020-05-19 09:54 | Inpatient (IN) | payer MEDICAID, OTHER ==
[~2020-05-19] VITALS: Ht 172.7 cm; Wt 63.7 kg
[~2020-05-19 09:54] MED LIST changes: -CLON-592 PO; -MELA3TAB82 PO; +MIRT-89 PO; +OLAN7.5T9 PO
[2020-05-19 11:03] LABS: BASOPHILS % (AUTO) 0.6 % (0.0-2.0); EOSINOPHILS % (AUTO) 0.8 % (1.0-6.0); HEMATOCRIT 40.8 % (36-46); HEMOGLOBIN 13.7 g/dL (12.0-16.0); LYMPHOCYTES # (AUTO) 1.9 K/uL (1.0-4.8); LYMPHOCYTES % (AUTO) 31.2 % (22.0-44.0); MEAN CORPUSCULAR HEMOGLOBIN 28.8 pg (26.0-34.0); MEAN CORPUSCULAR HGB CONC 33.7 G/dL (31.0-37.0); MEAN CORPUSCULAR VOLUME 86 fL (80-100); MONOCYTES # (AUTO) 0.7 K/uL (0.1-1.0); MONOCYTES % (AUTO) 12.2 % (2.0-9.0); NEUTROPHILS # (AUTO) 3.3 K/uL (1.8-7.7); NEUTROPHILS % (AUTO) 55.2 % (40.0-70.0); PLATELET COUNT (AUTO) 337 K/uL (150-450); RED BLOOD CELL COUNT(AUTO) 4.76 MIL/uL (4.00-5.20); RED CELL DISTRIBUTION WIDTH 13.6 % (11.5-14.5)
[2020-05-19] MEDS ORDERED: LORazepam 2 MG/ML VIAL IM ONE (11:15)
[2020-05-19] MEDS ORDERED: HALOPERIDOL LACTATE 5 MG/ML VIAL IM ONE (11:15)
[2020-05-19] MEDS ORDERED: DiphenhydrAMINE HCL 50 MG/ML VIAL IM ONE (11:15)
[2020-05-19 11:26] LABS: ANION GAP 9 mmol/L (8-16); CALCIUM, TOTAL 8.7 mg/dL (8.8-10.5); CARBON DIOXIDE 24 mmol/L (22-29); CHLORIDE 102 mmol/L (98-107); GLOMERULAR FILTR. RATE CALC > 60 mL/min (>60); GLUCOSE,RANDOM 84 mg/dL (70-110); POTASSIUM 3.7 mmol/L (3.5-5.1); SODIUM SERUM 135 mmol/L (136-145); UREA NITROGEN, BLOOD 19 mg/dL (7-18)
[2020-05-19 11:32] LABS: ALANINE AMINOTRANSFERASE 22 U/L (12-78); ALBUMIN 3.3 g/dL (3.4-5.0); ALKALINE PHOSPHATASE 83 U/L (46-116); ASPARTATE AMINOTRANSFERASE 22 U/L (15-37); BILIRUBIN,TOTAL 0.4 mg/dL (0.1-1.0); TOTAL PROTEIN, SERUM 8.5 g/dL (6.4-8.2)
[2020-05-19 11:53] LABS: COVID AG,FIA SOURCE NASOPHARYNGEAL
[2020-05-19 13:25] LABS: AMPHET/METH SCREEN,URINE POSITIVE (NEGATIVE); BARBITURATE SCREEN, URINE NEGATIVE (NEGATIVE); BENZODIAZEPINES SCREEN,URINE NEGATIVE (NEGATIVE); CANNABINOID SCREEN,URINE NEGATIVE (NEGATIVE); COCAINE SCREEN,URINE NEGATIVE (NEGATIVE); METHADONE SCREEN, URINE NEGATIVE (NEGATIVE); OPIATE SCREEN,URINE NEGATIVE (NEGATIVE)
[2020-05-19 13:29] LABS: PHENCYCLIDINE SCREEN,URINE NEGATIVE (NEGATIVE)
[2020-05-19 15:19] VITALS: BP 109/73
[2020-05-19] MEDS: LORazepam 2 MG TABLET PO PRN (16:05)
[2020-05-19 16:12] VITALS: BP 100/62
[2020-05-19] MEDS: HALOPERIDOL 5 MG TABLET PO PRN (16:13)
[2020-05-19] MEDS ORDERED: ALBUTEROL SULFATE HFA 90 MCG/PUFF 8 GM INHALER IH PRN (21:45)
[2020-05-19] MEDS ORDERED: MAG HYDROX/AL HYDROX/SIMETH ES 30 ML SUSPENSION UDCUP PO PRN (21:45)
[2020-05-19] MEDS ORDERED: LOPERAMIDE HCL 2 MG CAPSULE PO PRN (21:45)
[2020-05-19] MEDS ORDERED: MAGNESIUM HYDROXIDE SUSPENSION 30 ML UDCUP PO PRN (21:45)
[2020-05-19] MEDS ORDERED: CloNIDine HCL 0.1 MG TABLET PO PRN (21:45)
[2020-05-19] MEDS ORDERED: NICOTINE 14 MG/24 HOUR PATCH TD PRN (21:45)
[2020-05-19] MEDS ORDERED: ONDANSETRON HCL 4 MG TABLET PO PRN (21:45)
[2020-05-19] MEDS ORDERED: GuaiFENesin/D-METHORPHAN [SUGAR-FREE] 200-20MG/10 ML SYRUP UDCUP PO PRN (21:45)
[2020-05-19] MEDS ORDERED: IBUPROFEN 400 MG TABLET PO PRN (21:45)
[2020-05-19] MEDS ORDERED: ACETAMINOPHEN 325 MG TABLET PO PRN (21:45)
[2020-05-19] MEDS ORDERED: DOCUSATE SODIUM 100 MG CAPSULE PO PRN (21:45)
[2020-05-19] MEDS ORDERED: PETROLATUM,WHITE 28 GM JELLY TP PRN (21:45)
[2020-05-20 02:05] VITALS: BP 110/64
[2020-05-20] MEDS ORDERED: INFLUENZA VIRUS VACCINE QVS 2020-21 (6MO+)/PF 60 MCG/0.5 ML SYRINGE IM ONE (05:00)
[2020-05-20 08:37] VITALS: BP 100/62
[2020-05-20] MEDS: LORazepam 2 MG TABLET PO PRN (09:43)
[2020-05-20] MEDS: OLANZapine 7.5 MG TABLET PO SCH ×2 (09:43→20:04)
[2020-05-20 16:05] VITALS: BP 113/74
[2020-05-20] MEDS: MIRTAZAPINE 15 MG TABLET PO SCH (20:04)
[2020-05-21 05:29] VITALS: BP 110/68
[2020-05-21] MEDS: OLANZapine 7.5 MG TABLET PO SCH ×2 (08:14→20:01)
[2020-05-21 12:30] VITALS: BP 100/72
[2020-05-21] MEDS: LORazepam 2 MG TABLET PO PRN (16:55)
[2020-05-21] MEDS: HALOPERIDOL 5 MG TABLET PO PRN (17:36)
[2020-05-21] MEDS: MIRTAZAPINE 15 MG TABLET PO SCH (20:01)
[2020-05-21] MEDS: ZOLPIDEM TARTRATE 10 MG TABLET PO PRN (20:21)
[2020-05-22 01:38] VITALS: BP 112/74
[2020-05-22] MEDS: OLANZapine 7.5 MG TABLET PO SCH ×2 (09:23→20:11)
[2020-05-22] MEDS: LORazepam 2 MG TABLET PO PRN (09:26)
[2020-05-22 12:46] VITALS: BP 114/69
[2020-05-22 16:05] VITALS: BP 120/60
[2020-05-22] MEDS: MIRTAZAPINE 15 MG TABLET PO SCH (20:11)
[2020-05-23 01:16] VITALS: BP 118/69
[2020-05-23] MEDS: LORazepam 2 MG TABLET PO PRN ×2 (08:30→16:23)
[2020-05-23] MEDS: OLANZapine 7.5 MG TABLET PO SCH ×2 (08:30→20:28)
[2020-05-23 12:44] VITALS: BP 112/75
[2020-05-23 16:10] VITALS: BP 110/66
[2020-05-23] MEDS: MIRTAZAPINE 15 MG TABLET PO SCH (20:28)
[2020-05-24 00:55] VITALS: BP 122/82
[2020-05-24 08:23] VITALS: BP 103/71
[2020-05-24] MEDS: OLANZapine 7.5 MG TABLET PO SCH ×2 (08:38→20:25)
[2020-05-24] MEDS: LORazepam 2 MG TABLET PO PRN ×2 (08:38→16:06)
[2020-05-24 16:19] VITALS: BP 100/64
[2020-05-24] MEDS: HALOPERIDOL 5 MG TABLET PO PRN (17:08)
[2020-05-24] MEDS: MIRTAZAPINE 15 MG TABLET PO SCH (20:25)
[2020-05-24] MEDS: ZOLPIDEM TARTRATE 10 MG TABLET PO PRN (22:50)
[2020-05-25 01:48] VITALS: BP 101/68
[2020-05-25 08:28] VITALS: BP 101/78
[2020-05-25] MEDS: OLANZapine 7.5 MG TABLET PO SCH (08:47)
[2020-05-25] MEDS ORDERED: OLAN7.5T9 PO (09:41)
[2020-05-25] MEDS ORDERED: MIRT-89 PO (09:41)
== END 2020-05-25 13:00 | disposition home or self-care (01) | DRG 750 ==
LOC: EMS 09:54 → B3A 13:35
DX: F25.0 Schizoaffective disorder, bipolar type (principal); E87.1 Hypo-osmolality and hyponatremia; F15.10 Other stimulant abuse, uncomplicated; R45.850 Homicidal ideations; R45.851 Suicidal ideations; Z20.828 Contact with and (suspected) exposure to other viral communicable diseases; F17.210 Nicotine dependence, cigarettes, uncomplicated; F99 Mental disorder, not otherwise specified; F10.10 Alcohol abuse, uncomplicated; F32.9 Major depressive disorder, single episode, unspecified; G47.00 Insomnia, unspecified; Z59.0 Homelessness; Z79.899 Other long term (current) drug therapy; Z87.59 Personal history of other complications of pregnancy, childbirth and the puerperium; Z23 Encounter for immunization; Z91.5 Personal history of self-harm; Z98.82 Breast implant status; Z87.440 Personal history of urinary (tract) infections; Z88.8 Allergy status to other drugs, medicaments and biological substances; Z72.89 Other problems related to lifestyle
CPT/HCPCS: 87081; 87426; 90686; 99291; G0480; J1200; J1630; J2060

== ENCOUNTER 2020-06-21 14:31 | Emergency (ER) | payer MEDICAID, OTHER ==
[~2020-06-21] VITALS: Ht 172.7 cm; Wt 63.6 kg
[2020-06-21 16:43] VITALS: BP 120/73
== END 2020-06-21 17:12 | disposition home or self-care (01) ==
LOC: EMS 14:47
DX: L98.8 Other specified disorders of the skin and subcutaneous tissue (principal); F32.9 Major depressive disorder, single episode, unspecified; F17.210 Nicotine dependence, cigarettes, uncomplicated; F12.90 Cannabis use, unspecified, uncomplicated; F15.90 Other stimulant use, unspecified, uncomplicated
CPT/HCPCS: Z7502

== ENCOUNTER 2020-07-10 11:55 | Emergency (ER) | payer OTHER ==
[~2020-07-10] VITALS: Ht 172.7 cm; Wt 63.6 kg
[2020-07-10] MEDS ORDERED: LIDOCAINE 1% 10 ML VIAL PERC ONE (15:15)
[2020-07-10] MEDS ORDERED: POVIDONE-IODINE 10% 15 ML SOLUTION UD TP ONE (15:30)
[2020-07-10 18:08] VITALS: BP 135/71
== END 2020-07-10 18:09 | disposition home or self-care (01) ==
LOC: EMS 12:00
DX: L02.411 Cutaneous abscess of right axilla (principal); L03.112 Cellulitis of left axilla; F32.9 Major depressive disorder, single episode, unspecified; F20.9 Schizophrenia, unspecified; F17.210 Nicotine dependence, cigarettes, uncomplicated; F12.90 Cannabis use, unspecified, uncomplicated; F19.90 Other psychoactive substance use, unspecified, uncomplicated; Z88.1 Allergy status to other antibiotic agents; Z88.8 Allergy status to other drugs, medicaments and biological substances
CPT/HCPCS: 10060; 99283; J3490

== ENCOUNTER 2020-07-17 17:59 | Emergency (ER) | payer OTHER ==
[~2020-07-17] VITALS: Ht 165.1 cm; Wt 63.6 kg
[2020-07-17] MEDS ORDERED: OLANZapine 5 MG TABLET PO ONE (20:30)
[2020-07-17 20:37] LABS: BASOPHILS % (AUTO) 1.7 % (0.0-2.0); EOSINOPHILS % (AUTO) 1.4 % (1.0-6.0); HEMOGLOBIN 12.7 g/dL (12.0-16.0); LYMPHOCYTES # (AUTO) 2.8 K/uL (1.0-4.8); LYMPHOCYTES % (AUTO) 53.5 % (22.0-44.0); MEAN CORPUSCULAR HEMOGLOBIN 28.7 pg (26.0-34.0); MEAN CORPUSCULAR HGB CONC 33.4 G/dL (31.0-37.0); MEAN CORPUSCULAR VOLUME 86 fL (80-100); MONOCYTES # (AUTO) 0.7 K/uL (0.1-1.0); MONOCYTES % (AUTO) 13.1 % (2.0-9.0); NEUTROPHILS # (AUTO) 1.6 K/uL (1.8-7.7); NEUTROPHILS % (AUTO) 30.3 % (40.0-70.0); PLATELET COUNT (AUTO) 548 K/uL (150-450); RED BLOOD CELL COUNT(AUTO) 4.41 MIL/uL (4.00-5.20)
[2020-07-17 20:49] LABS: ANION GAP 2 mmol/L (8-16); CALCIUM, TOTAL 9.3 mg/dL (8.8-10.5); CARBON DIOXIDE 27 mmol/L (22-29); CHLORIDE 101 mmol/L (98-107); CREATININE 0.63 mg/dL (0.60-1.30); GLOMERULAR FILTR. RATE CALC > 60 mL/min (>60); GLUCOSE,RANDOM 91 mg/dL (70-110); POTASSIUM 3.1 mmol/L (3.5-5.1); SODIUM SERUM 130 mmol/L (136-145); UREA NITROGEN, BLOOD 8 mg/dL (7-18)
[2020-07-17 20:54] LABS: ALANINE AMINOTRANSFERASE 24 U/L (12-78); ALBUMIN 2.9 g/dL (3.4-5.0); ALKALINE PHOSPHATASE 74 U/L (46-116); ASPARTATE AMINOTRANSFERASE 25 U/L (15-37); BILIRUBIN,TOTAL 0.2 mg/dL (0.1-1.0); TOTAL PROTEIN, SERUM 8.7 g/dL (6.4-8.2)
[2020-07-17 21:38] VITALS: BP 124/84
== END 2020-07-17 22:18 | disposition home or self-care (01) ==
LOC: EMS 17:59
DX: F41.9 Anxiety disorder, unspecified (principal); R42 Dizziness and giddiness; F32.9 Major depressive disorder, single episode, unspecified; F20.9 Schizophrenia, unspecified; F17.210 Nicotine dependence, cigarettes, uncomplicated; F12.90 Cannabis use, unspecified, uncomplicated; F19.90 Other psychoactive substance use, unspecified, uncomplicated; Z88.8 Allergy status to other drugs, medicaments and biological substances
CPT/HCPCS: 36415; 80053; 84702; 85025; 99283; G0480

== ENCOUNTER 2020-12-29 10:56 | Emergency (ER) | payer OTHER ==
[~2020-12-29] VITALS: Ht 172.7 cm; Wt 63.6 kg
[~2020-12-29 10:56] MED LIST changes: +OLAN7.5T18 PO; -OLAN7.5T9 PO
[2020-12-29 10:58] VITALS: BP 103/65
== END 2020-12-29 14:38 | disposition left against medical advice (07) ==
LOC: EMS 10:58
DX: R10.9 Unspecified abdominal pain (principal); Z53.21 Procedure and treatment not carried out due to patient leaving prior to being seen by health care provider

== ENCOUNTER 2023-01-31 14:25 | Emergency (ER) | payer OTHER ==
[~2023-01-31] VITALS: Ht 172.7 cm; Wt 63.0 kg
[2023-01-31 17:04] VITALS: TEMP 97.6
[2023-01-31 18:46] LABS: EOSINOPHILS % (AUTO) 2.8 % (1.0-6.0); HEMATOCRIT 35.6 % (36-46); HEMOGLOBIN 11.5 g/dL (12.0-16.0); LYMPHOCYTES # (AUTO) 2.5 K/uL (1.0-4.8); LYMPHOCYTES % (AUTO) 34.3 % (22.0-44.0); MEAN CORPUSCULAR HEMOGLOBIN 27.4 pg (26.0-34.0); MEAN CORPUSCULAR HGB CONC 32.3 G/dL (31.0-37.0); MEAN CORPUSCULAR VOLUME 85 fL (80-100); MONOCYTES # (AUTO) 0.9 K/uL (0.1-1.0); MONOCYTES % (AUTO) 12.7 % (2.0-9.0); NEUTROPHILS # (AUTO) 3.6 K/uL (1.8-7.7); NEUTROPHILS % (AUTO) 49.2 % (40.0-70.0); PLATELET COUNT (AUTO) 501 K/uL (150-450); RED CELL DISTRIBUTION WIDTH 16.4 % (11.5-14.5)
[2023-01-31 19:10] LABS: COVID AG,FIA SOURCE NASAL SWAB
[2023-01-31 19:18] LABS: ANION GAP 5 mmol/L (8-16); CALCIUM, TOTAL 8.6 mg/dL (8.8-10.5); CARBON DIOXIDE 28 mmol/L (22-29); CHLORIDE 105 mmol/L (98-107); CREATININE 0.76 mg/dL (0.60-1.30); GLOMERULAR FILTR. RATE CALC > 60 mL/min (>60); GLUCOSE,RANDOM 120 mg/dL (70-110); POTASSIUM 3.6 mmol/L (3.5-5.1); SODIUM SERUM 138 mmol/L (136-145)
[2023-01-31 19:24] LABS: ALANINE AMINOTRANSFERASE 27 U/L (12-78); ALBUMIN 2.9 g/dL (3.4-5.0); ALKALINE PHOSPHATASE 106 U/L (46-116); ASPARTATE AMINOTRANSFERASE 31 U/L (15-37); TOTAL PROTEIN, SERUM 6.8 g/dL (6.4-8.2)
[2023-01-31 19:31] LABS: BILIRUBIN,TOTAL < 0.1 mg/dL (0.1-1.0)
[2023-01-31] MEDS ORDERED: HYDROCODONE/ACETAMINOPHEN 5-325 MG TABLET PO ONE (21:15)
[2023-01-31 21:42] VITALS: BP 164/67; PULSE 84; RESP 18
== END 2023-01-31 22:25 | disposition home or self-care (01) ==
LOC: EMS 14:54
DX: F20.9 Schizophrenia, unspecified (principal); F32.A Depression, unspecified; F17.210 Nicotine dependence, cigarettes, uncomplicated; F12.90 Cannabis use, unspecified, uncomplicated; F15.90 Other stimulant use, unspecified, uncomplicated; Z98.51 Tubal ligation status; Z90.89 Acquired absence of other organs; Z98.890 Other specified postprocedural states; Z20.822 Contact with and (suspected) exposure to COVID-19; Z88.8 Allergy status to other drugs, medicaments and biological substances
CPT/HCPCS: 99284; 87426; 80053; 85025; 36415; G0480

== ENCOUNTER 2023-10-21 06:11 | Emergency (ER) | payer MEDICAID, OTHER ==
[~2023-10-21] VITALS: Ht 165.1 cm; Wt 75.0 kg
[2023-10-21 06:14] VITALS: BP 138/76; PULSE 88; RESP 20; TEMP 97.8
[2023-10-21 06:40] LABS: COVID AG,FIA SOURCE NASAL SWAB
[2023-10-21] MEDS ORDERED: ACETAMINOPHEN 500 MG TABLET PO ONE (06:45)
[2023-10-21 06:50] LABS: HEMATOCRIT 23.4 % (36-46); HEMOGLOBIN 7.2 g/dL (12.0-16.0); MEAN CORPUSCULAR HEMOGLOBIN 18.9 pg (26.0-34.0); MEAN CORPUSCULAR HGB CONC 30.7 G/dL (31.0-37.0); MEAN CORPUSCULAR VOLUME 62 fL (80-100); PLATELET COUNT (AUTO) 703 K/uL (150-450); RED BLOOD CELL COUNT(AUTO) 3.79 MIL/uL (4.00-5.20); RED CELL DISTRIBUTION WIDTH 18.7 % (11.5-14.5); WHITE BLOOD COUNT (AUTO) 10.3 K/uL (4.5-11.0)
[2023-10-21 06:54] LABS: ANION GAP 8 mmol/L (8-16); CALCIUM, TOTAL 8.5 mg/dL (8.8-10.5); CARBON DIOXIDE 27 mmol/L (22-29); CHLORIDE 104 mmol/L (98-107); CREATININE 0.71 mg/dL (0.60-1.30); GLOMERULAR FILTR. RATE CALC > 60 mL/min (>60); GLUCOSE,RANDOM 99 mg/dL (70-110); POTASSIUM 3.5 mmol/L (3.5-5.1); SODIUM SERUM 139 mmol/L (136-145); UREA NITROGEN, BLOOD 19 mg/dL (7-18)
[2023-10-21 06:57] LABS: ALANINE AMINOTRANSFERASE 38 U/L (12-78); ALBUMIN 3.1 g/dL (3.4-5.0); ALKALINE PHOSPHATASE 107 U/L (46-116); ASPARTATE AMINOTRANSFERASE 40 U/L (15-37); BILIRUBIN,TOTAL 0.2 mg/dL (0.1-1.0); TOTAL PROTEIN, SERUM 8.4 g/dL (6.4-8.2)
[2023-10-21 07:07] LABS: ALCOHOL, BLOOD (SERUM) < 3 mg/dL (0-10)
[2023-10-21 07:35] LABS: RBC MORPHOLOGY COMMENT ABNORMAL R
[2023-10-21 07:56] LABS: SARS-COV2 (COVID) ANTIGEN,FIA Negative (Negative)
[2023-10-21 08:52] LABS: BAND NEUTROPHILS % (MANUAL) 0 % (0-5)
[2023-10-21 08:53] LABS: LYMPHOCYTES % (MANUAL) 28 % (22-44); MONOCYTES % (MANUAL) 7 % (2-9); SEGMENTED NEUTROPHILS % 65 % (40-70); TOTAL CELLS COUNTED 100
[2023-10-21] MEDS ORDERED: ACET-3385 PO (12:03)
== END 2023-10-21 13:44 | disposition home or self-care (01) ==
LOC: EMS 06:12
DX: S60.221A Contusion of right hand, initial encounter (principal); F41.9 Anxiety disorder, unspecified; F32.A Depression, unspecified; F20.9 Schizophrenia, unspecified; F17.210 Nicotine dependence, cigarettes, uncomplicated; F12.90 Cannabis use, unspecified, uncomplicated; F15.90 Other stimulant use, unspecified, uncomplicated; Z90.89 Acquired absence of other organs; Z98.51 Tubal ligation status; Z20.822 Contact with and (suspected) exposure to COVID-19; X58.XXXA Exposure to other specified factors, initial encounter; Y93.89 Activity, other specified; Y92.89 Other specified places as the place of occurrence of the external cause; Y99.8 Other external cause status
CPT/HCPCS: 99284; 87426; 80053; 84703; 85025; 36415; 73130; G0480

== ENCOUNTER → 2024-05-11 | Emergency (ER) | payer OTHER ==
[~2024-05-11] VITALS: Ht 167.6 cm; Wt 67.3 kg
[~2024-05-11] MED LIST changes: +ACET-3385 PO; +OLAN5TAB52 PO; -OLAN7.5T18 PO
[2024-05-11 04:21] VITALS: TEMP 97.7
[2024-05-11] MEDS: LORazepam 1 MG TABLET PO ONE (04:55)
[2024-05-11] MEDS: ACETAMINOPHEN 500 MG TABLET PO ONE (04:56)
[2024-05-11] MEDS: OLANZapine 5 MG TABLET PO ONE (04:56)
[2024-05-11 06:55] VITALS: BP 129/73; PULSE 75; RESP 17; O2SAT 98
== END | disposition still patient (30) ==
LOC: EMS 04:15
DX: F25.0 Schizoaffective disorder, bipolar type (principal); F41.9 Anxiety disorder, unspecified; R51.9 Headache, unspecified; F12.90 Cannabis use, unspecified, uncomplicated; F15.90 Other stimulant use, unspecified, uncomplicated; F17.210 Nicotine dependence, cigarettes, uncomplicated; Z59.00 Homelessness unspecified; Z98.51 Tubal ligation status; Z90.89 Acquired absence of other organs; Z88.8 Allergy status to other drugs, medicaments and biological substances
CPT/HCPCS: 99284; Z7502; Z7610